=== PATIENT | female | born 1965 | race Two or more races ===

== ENCOUNTER 2020-08-08 12:05 | Inpatient (IN) | payer OTHER ==
[~2020-08-08] VITALS: Ht 154.9 cm; Wt 74.8 kg
[2020-08-08 12:00] VITALS: BP_SYST 115; BP_DIAS 66; BP_DIAS 67
--- NOTE | 2020-08-08 12:30 | NUR ---
RECEIVED PT FROM PARAMEDICS. PHONE REPORT GIVEN FROM HERCULES. UPON ADMISSION PT A/OX 4. AMBULATORY W STEADY GAIT AND STRONG EXTREMITIES. REPORT PAIN WHEN BREATHING IN ANTERIOR MID CHEST AND POSTERIOR CHEST. 2L/MIN NC RUNNING AND SAO2 100%. NO SIGNS OF DISTRESS. TELE MONITOR ON READING SR IN 60S WITH OCCASIONAL PVCS. PULSES STRONG. URINATED W NO ISSUES AND AMBULATES WELL TO BATHROOM. L AC SALINE LOCKED. DRESSING DRY AND INTACT. PT BELONGINGS NOTED, PT EXPRESSED WANTING TO KEEP ALL BELONGINGS AT BEDSIDE. SKIN INTACT. NO CUTS BRUISES OR LESIONS. WILL MONITOR PATIENT AND REPORT TO MD NEEDED.
[2020-08-08] MEDS ORDERED: ONDA-97 PO (13:16)
[2020-08-08] MEDS ORDERED: ZOLPIDEM TARTRATE 5 MG TABLET PO PRN (14:00)
[2020-08-08] MEDS ORDERED: Z GUARD REMEDY 2 OZ OINT TP PRN (14:00)
[2020-08-08] MEDS ORDERED: MAG HYDROX/AL HYDROX/SIMETH 30 ML UDC PO PRN (14:00)
[2020-08-08] MEDS ORDERED: MAGNESIUM HYDROXIDE 30 ML UDC PO PRN (14:00)
[2020-08-08] MEDS ORDERED: HYDROCODONE/APAP 5/325MG TABLET PO PRN (14:00)
[2020-08-08] MEDS ORDERED: ONDANSETRON HCL/PF 4 MG/2 ML VIAL IVP PRN (14:00)
[2020-08-08 15:20] LABS: BASOPHILS % (AUTO) 0.2 % (0.0-2.0); EOSINOPHILS % (AUTO) 0.1 % (0.0-6.0); HEMATOCRIT 36 % (33-45); LYMPHOCYTES # (AUTO) 1.1 /CMM (0.8-4.8); LYMPHOCYTES % (AUTO) 19.8 % (20.0-44.0); MEAN CORPUSCULAR HGB CONC 33 g/dl (31.0-36.0); MEAN CORPUSCULAR VOLUME 88 fL (82-100); MONOCYTES # (AUTO) 0.3 /CMM (0.1-1.30); MONOCYTES % (AUTO) 6.2 % (2.0-12.0); NEUTROPHILS # (AUTO) 4.1 /CMM (1.8-8.9); NEUTROPHILS % (AUTO) 73.7 % (43.0-81.0); PLATELET COUNT (AUTO) 186 /CMM (150-450); RED BLOOD CELL COUNT(AUTO) 4.11 MIL/uL (4.0-5.2); WHITE BLOOD COUNT (AUTO) 5.5 K/uL (4.3-11.0)
[2020-08-08 15:55] LABS: BILIRUBIN,TOTAL 0.5 mg/dL (0.2-1.0); CREATININE 0.9 mg/dL (0.6-1.3); POTASSIUM 4.4 mmol/L (3.5-5.1); TOTAL PROTEIN, SERUM 7.7 g/dL (6.4-8.2)
[2020-08-08 16:00] VITALS: BP 141/70
[2020-08-08 17:00] VITALS: BP 141/70
[2020-08-08] MEDS: ACETAMINOPHEN 325 MG TABLET PO PRN ×2 (17:04→23:37)
--- NOTE | 2020-08-08 18:35 | NUR ---
PT ASLEEP IN BED AND EASILY AROUSABLE. REPORT PAIN WHEN BREATHING IN ANTERIOR MID CHEST AND POSTERIOR CHEST AND MILD HEADACHE. ADMINISTERED ORDERED ACETAMINOPHEN. ALL ORDERS IMPLEMENTED. 2L/MIN NC RUNNING AND SAO2 98%. NO SIGNS OF DISTRESS. TELE MONITOR ON READING SR IN 60S WITH OCCASIONAL PVCS. PULSES STRONG. URINATED W NO ISSUES AND AMBULATES WELL TO BATHROOM. L AC SALINE LOCKED. DRESSING DRY AND INTACT. MONITORED BREATHING, RESPIRATIONS, SAO2 THROUGHOUT SHIFT. MONITORED VS AND PAIN THROUGHOUT SHIFT AND REPORTED NEEDED TO MD. WILL ENDORSE TO PM RN FOR CONTINUATION OF CARE.
--- NOTE | 2020-08-08 19:57 | NUR ---
TELE/RN OPENING NOTE Patient asleep in bed, A/O x4, ambulatory. No JVD. Tongue midline, no tracheal deviation. CRP <3seconds. Pedal and brachial pulses 2+, symmetrical. Tele monitor reading sinus rhythm with PVCs in the 60s. Breathing even, unlabored on 2 LPM NC. Skin warm, pink, dry appropriate for ethnicity, intact. IV site LAC 20g saline locked, patent and intact. No signs of redness or infiltration. Abdomen round, soft, non-tender. BS active. Patient void via BRP without difficulty. Bed in low position, wheels locked, side rails up x2, call light within reach.
[2020-08-08 20:00] VITALS: BP 110/61
[2020-08-08 20:30] VITALS: BP 110/61
--- NOTE | 2020-08-08 23:42 | NUR ---
TELE/RN NOTE Patient c/o pain level 7 on back, aching and throbbing. Administered PRN norco as ordered. VSS Will continue to monitor.
--- NOTE | 2020-08-08 23:43 | NUR ---
TELE/RN NOTE Patient temperature is 100.3. Administered PRN acetaminophen as ordered. Will continue to monitor.
[2020-08-09] VITALS (7 sets, daily range): BP systolic 108–146; BP diastolic 62–99
[2020-08-09] MEDS ORDERED: AZITHROMYCIN 500 MG VIAL ONE (01:31)
[2020-08-09] MEDS: AZITHROMYCIN 500 MG in IV D5W 250 ML IV SCH (01:58)
[2020-08-09] MEDS: PANTOPRAZOLE 40 MG TABLET.DR PO SCH (06:33)
[2020-08-09 06:49] LABS: BASOPHILS % (AUTO) 0.3 % (0.0-2.0); HEMATOCRIT 34 % (33-45); HEMOGLOBIN 11.2 g/dL (11.5-14.8); LYMPHOCYTES # (AUTO) 1.1 /CMM (0.8-4.8); LYMPHOCYTES % (AUTO) 20.6 % (20.0-44.0); MEAN CORPUSCULAR HGB CONC 33 g/dl (31.0-36.0); MEAN CORPUSCULAR VOLUME 88 fL (82-100); MONOCYTES # (AUTO) 0.3 /CMM (0.1-1.30); MONOCYTES % (AUTO) 5.2 % (2.0-12.0); NEUTROPHILS # (AUTO) 4.1 /CMM (1.8-8.9); NEUTROPHILS % (AUTO) 73.9 % (43.0-81.0); PLATELET COUNT (AUTO) 187 /CMM (150-450); RED BLOOD CELL COUNT(AUTO) 3.81 MIL/uL (4.0-5.2); WHITE BLOOD COUNT (AUTO) 5.5 K/uL (4.3-11.0)
[2020-08-09 06:57] LABS: MAGNESIUM 2.4 mg/dL (1.8-2.4); PHOSPHORUS 3.7 mg/dL (2.5-4.9)
--- NOTE | 2020-08-09 07:08 | NUR ---
TELE/RN CLOSING NOTE Patient asleep in bed, A/O x4, ambulatory. Tele monitor reading sinus rhythm with PVCs in the 70s. Breathing even, unlabored on 2 LPM NC. Skin warm, pink, dry appropriate for ethnicity, intact. IV site LAC 20g saline locked, patent and intact. No signs of redness or infiltration. Patient void via BRP 4x, without difficulty. All scheduled medications given and orders carried out. Bed in low position, wheels locked, side rails up x2, call light within reach.
--- NOTE | 2020-08-09 08:00 | NUR ---
RN OPENING NOTE Patient is resting in bed, A/o x4, SOB upon exertion, o2 95% on 3L NC. Tele monitor SR 67. Patient denies any pain at this time. Temperature is 99.6F, cooling measures implemented and temp went down to 98.8F. IV line in the LAC#20g is clean and intact s/l. Patient is ambulatory with BRP and independent with care. Bed is in lowest position, side rails x2 in upright position, call light is within reach, fall safety and aspiration precautions enforced. Isolation for COVID positive. Will continue with plan of care.
[2020-08-09] MEDS: DEXAMETHASONE SOD PHOSPHATE 10 MG/ML VIAL IV SCH (08:50)
[2020-08-09] MEDS ORDERED: CEFTRIAXONE 1GM BAG (ER ONLY) 1 GM/50 ML PIGGYBACK IV SCH (09:00)
[2020-08-09] MEDS: CEFTRIAXONE 1 G in IV D5W 50 ML IV SCH (09:04)
--- NOTE | 2020-08-09 12:41 | NUR ---
RN NOTE Per Dr. Lees to order convalescent plasma for patient. Paperwork has been filled out by Dr. Lees.
[2020-08-09 13:56] LABS: FERRITIN 515 ng/mL (8-388)
[2020-08-09 14:21] LABS: C-REACTIVE PROTEIN 17.4 mg/dL (0.0-0.9)
[2020-08-09] MEDS: ACETAMINOPHEN 325 MG TABLET PO PRN (14:48)
[2020-08-09] MEDS ORDERED: REMDESIVIR (INVESTIGATIONAL) 200 MG in IV NS 0.9% 210 ML IV ONE (16:30)
--- NOTE | 2020-08-09 18:51 | NUR ---
RN CLOSING NOTE Patient is resting in bed, A/o x4, SOB upon exertion, o2 95% on 3L NC. Tele monitor SR 60-70s. Patient denies any pain at this time. Temperature is 99.6F, cooling measures implemented and temp went down to 98.8F. IV line in the LAC#20g is clean and intact s/l. Patient is ambulatory with BRP and independent with care. Consent for convalsecent plasma has been signed by the patient. All patient needs met, all due medications given, patient kept clean and dry throughout shift. Bed is in lowest position, side rails x2 in upright position, call light is within reach, fall safety and aspiration precautions enforced. Isolation for COVID positive. Will endorse to shift production associate.
--- NOTE | 2020-08-09 20:07 | NUR ---
RECEIVED IN BED LYING ON HER RIGHT SIDE ALERT ORIENTATED X4 WHEN NAME SPOKEN TURNED OVER AND ACKNOWLEDGED THE NURSE DENIES SOB OR PAIN 02 ON NC 92% AT 4LITERS
[2020-08-10] VITALS (9 sets, daily range): BP systolic 112–142; BP diastolic 67–78
--- NOTE | 2020-08-10 05:17 | NUR ---
CLOSING NOTES: ALERT AND ORIENTATED X4 ONE COUGHING SPELL THIS NIGHT AMBULATES TO THE BATHROOM STEADY ON HER FEET. SOB WHEN SHE AMBULATES TO THE BATHROOM, INSTRUCTED HER TO KEP THE 02 ON D/T THE TUBING IS LONG AND WILL MAKE IT TO THE BATHROOM. 02 AT 2 LITERS SATS 95%
[2020-08-10 06:18] LABS: BASOPHILS % (AUTO) 0.1 % (0.0-2.0); HEMATOCRIT 32 % (33-45); HEMOGLOBIN 10.9 g/dL (11.5-14.8); LYMPHOCYTES # (AUTO) 1.1 /CMM (0.8-4.8); LYMPHOCYTES % (AUTO) 13.2 % (20.0-44.0); MEAN CORPUSCULAR HGB CONC 34 g/dl (31.0-36.0); MEAN CORPUSCULAR VOLUME 87 fL (82-100); MONOCYTES # (AUTO) 0.5 /CMM (0.1-1.30); MONOCYTES % (AUTO) 5.8 % (2.0-12.0); NEUTROPHILS # (AUTO) 6.6 /CMM (1.8-8.9); NEUTROPHILS % (AUTO) 80.9 % (43.0-81.0); PLATELET COUNT (AUTO) 217 /CMM (150-450); RED BLOOD CELL COUNT(AUTO) 3.72 MIL/uL (4.0-5.2); WHITE BLOOD COUNT (AUTO) 8.1 K/uL (4.3-11.0)
[2020-08-10 06:53] LABS: ALBUMIN 2.7 g/dL (3.4-5.0); BILIRUBIN,DIRECT 0.1 mg/dL (0.0-0.2); BILIRUBIN,TOTAL 0.4 mg/dL (0.2-1.0); CALCIUM, SERUM 9.2 mg/dL (8.5-10.1); CREATININE 0.9 mg/dL (0.6-1.3); MAGNESIUM 2.3 mg/dL (1.8-2.4); PHOSPHORUS 2.9 mg/dL (2.5-4.9); POTASSIUM 3.5 mmol/L (3.5-5.1); TOTAL PROTEIN, SERUM 7.3 g/dL (6.4-8.2)
--- NOTE | 2020-08-10 07:26 | NUR ---
MIDDLE SCHOOL RESOURCE TEACHER NOTES PATIENT RECEIVED IN BED RESTING COMFORTABLY, ALERT AND ORIENTED X 4, INDONESIAN SPEAKING. ON NASAL CANNULA 2LITERS WITH NO SIGNS OF RESPIRATORY DISTRESS, WITH EVEN NON-LABORED BREATHING AT THIS TIME. ON SERVICE CONSULTANT, SINUS RHYTHM 66. SKIN WARM AND DRY TO TOUCH. IV ACCESS INTACT AND PATENT. PATIENT PRESENTS WITH NO PAIN OR DISCOMFORT AT THIS TIME. ISOLATION PRECAUTIONS IMPLEMENTED. SAFETY PRECAUTIONS IMPLEMENTED WITH BED LOCKED, BED IN THE LOWEST POSITION, BILATERAL SIDE RAILS UP, BED ALARM ON, AND CALL LIGHT WITHIN EASY REACH. WILL CONTINUE TO MONITOR PATIENT.
[2020-08-10] MEDS: PANTOPRAZOLE 40 MG TABLET.DR PO SCH (08:35)
[2020-08-10] MEDS: DEXAMETHASONE SOD PHOSPHATE 10 MG/ML VIAL IV SCH (08:35)
[2020-08-10] MEDS: CEFTRIAXONE 1 G in IV D5W 50 ML IV SCH (08:36)
[2020-08-10] MEDS: AZITHROMYCIN 500 MG in IV D5W 250 ML IV SCH (09:30)
[2020-08-10] MEDS: ENOXAPARIN SODIUM 40 MG/0.4 ML DISP.SYRIN SQ SCH (11:03)
--- NOTE | 2020-08-10 12:01 | NUR ---
LICENSED ACUPUNCTURIST NOTES FOLLOWED UP WITH BLOOD BANK ABOUT CONVALESCENT PLASMA AND PLASMA IS NOT AVAILABLE YET.
--- NOTE | 2020-08-10 15:00 | NUR ---
PIPE JOINTS SUPERVISOR NOTES FOLLOWED UP WITH BLOOD BANK ABOUT CONVALESCENT PLASMA AND PLASMA IS NOT AVAILABLE YET, BLOOD BANK WILL CALL AND NOTIFY WHEN IT IS READY.
[2020-08-10] MEDS: REMDESIVIR (INVESTIGATIONAL) 100 MG in IV NS 0.9% 230 ML IV SCH (16:09)
--- NOTE | 2020-08-10 18:12 | NUR ---
KNIFEMAN NOTES PATIENT IN BED RESTING COMFORTABLY, ALERT AND ORIENTED X 4, [place] SPEAKING. ON NASAL CANNULA 3 LITERS WITH NO SIGNS OF RESPIRATORY DISTRESS, WITH EVEN NON-LABORED BREATHING AT THIS TIME. ON INSTRUMENTS SALES REPRESENTATIVE, SINUS RHYTHM 63. STILL AWAITING FOR CONVALESCENT PLASMA. SKIN KEPT CLEAN, WARM AND DRY TO TOUCH. IV ACCESS INTACT AND PATENT. MET ALL OF PATIENTS NEEDS. PATIENT PRESENTS WITH NO PAIN OR DISCOMFORT AT THIS TIME. ISOLATION PRECAUTIONS IMPLEMENTED. SAFETY PRECAUTIONS IMPLEMENTED WITH BED LOCKED, BED IN THE LOWEST POSITION, BILATERAL SIDE RAILS UP, BED ALARM ON, AND CALL LIGHT WITHIN EASY REACH. WILL ENDORSE PLAN OF CARE TO UPCOMING RN.
--- NOTE | 2020-08-10 23:04 | NUR ---
rn notes: follow up with lab regarding plasma convalescent, per lab there still no available unit at si time. will let us know once they receive it.
[2020-08-11] VITALS (9 sets, daily range): BP systolic 113–140; BP diastolic 7–121
--- NOTE | 2020-08-11 05:17 | NUR ---
rn notes/plasma follow up: Contacted lab x [phone], spoked with [facility], per [facility] there is no available plasma at this time, but the [facility], stated they will call in am once it is receive.
[2020-08-11 06:32] LABS: BASOPHILS % (AUTO) 0.3 % (0.0-2.0); HEMATOCRIT 33 % (33-45); HEMOGLOBIN 11.2 g/dL (11.5-14.8); LYMPHOCYTES % (AUTO) 18.8 % (20.0-44.0); MEAN CORPUSCULAR HGB CONC 34 g/dl (31.0-36.0); MEAN CORPUSCULAR VOLUME 89 fL (82-100); MONOCYTES # (AUTO) 0.5 /CMM (0.1-1.30); NEUTROPHILS # (AUTO) 3.8 /CMM (1.8-8.9); NEUTROPHILS % (AUTO) 70.9 % (43.0-81.0); PLATELET COUNT (AUTO) 259 /CMM (150-450); RED BLOOD CELL COUNT(AUTO) 3.76 MIL/uL (4.0-5.2); WHITE BLOOD COUNT (AUTO) 5.3 K/uL (4.3-11.0)
--- NOTE | 2020-08-11 06:43 | NUR ---
End of shift report: Kept on airborne isolation as pt covid positive, ppe utilized, with used of n95 and face shield. Pt on sinus maria guadalupe hr 59. Pt remains a/o x4, on 4l oxygen via nc, respirations even and unlabored, spo2 ranging 93-95%. Remains afebrile. Pt ambulatory, continent, brp. Plan of care: Continue Dexamethasone inj daily, On remdesevir iv q24hr, still waiting for convalescent plasma to become available., blood transfusion consent attached to chart. Safety precautions for fall initiated, call light in reach, will endorse to day rn for narciso.
[2020-08-11 06:55] LABS: ALBUMIN 2.7 g/dL (3.4-5.0); BILIRUBIN,DIRECT 0.1 mg/dL (0.0-0.2); BILIRUBIN,TOTAL 0.3 mg/dL (0.2-1.0); CALCIUM, SERUM 9.4 mg/dL (8.5-10.1); CREATININE 0.9 mg/dL (0.6-1.3); MAGNESIUM 2.4 mg/dL (1.8-2.4); PHOSPHORUS 3.3 mg/dL (2.5-4.9); TOTAL PROTEIN, SERUM 7.4 g/dL (6.4-8.2)
--- NOTE | 2020-08-11 07:15 | NUR ---
MCAT INSTRUCTOR NOTES RECEIVED PATIENT IN BED, ALERT AND ORIENTED X4. HOB ELEVATED. ON O2 AT 4L/MIN VIA NC. RT HAND # 20 SL INTACT AND PATENT. ON TELE MONITORING SR: 60. BED IN LOWEST POSITION, LOCKED. BED ALARM ON. FREQUENT VISUAL CHECK DONE. CALL LIGHT WITHIN REACH. ABLE TO VERBALIZE NEEDS.
[2020-08-11] MEDS: PANTOPRAZOLE 40 MG TABLET.DR PO SCH (08:28)
[2020-08-11] MEDS: DEXAMETHASONE SOD PHOSPHATE 10 MG/ML VIAL IV SCH (08:28)
[2020-08-11] MEDS: CEFTRIAXONE 1 G in IV D5W 50 ML IV SCH (08:35)
[2020-08-11] MEDS: AZITHROMYCIN 500 MG in IV D5W 250 ML IV SCH (08:37)
[2020-08-11] MEDS: ENOXAPARIN SODIUM 40 MG/0.4 ML DISP.SYRIN SQ SCH (08:39)
[2020-08-11] MEDS: REMDESIVIR (INVESTIGATIONAL) 100 MG in IV NS 0.9% 230 ML IV SCH (16:40)
[2020-08-11] MEDS: GUAIFENESIN/D-METHORPHAN HB 5 ML UDC PO PRN (18:01)
--- NOTE | 2020-08-11 19:19 | NUR ---
TRANSITIONAL NURSE NOTES PATIENT RESTING COMFORTABLY IN BED, ASLEEP. ALERT AND ORIENTED X4. HOB ELEVATED. TITRATED PATIENT DURING THE SHIFT, NOW ON 02 AT 2L/MIN VIA NC. NO S/S OF RESPIRATORY DISTRESS DURING THE SHIFT. WITH OCCASIONAL PRODUCTIVE COUGH BUT PATIENT ABLE TO COUGH OUT PHLEGM. RIGHT HAND # 20 SL AND LT AC # 18 SL INTACT AND PATENT. BED IN LOWEST POSITION, LOCKED. S/P CONVALESCENT PLASMA AND DAY 2 OF REMDESIVIR WITHOUT S/S OF COMPLICATIONS OBSERVED DURING THE SHIFT. BED ALARM ON. FREQUENT VISUAL CHECK DONE. IN NO APPARENT DISTRESS. CALL LIGHT WITHIN REACH. ABLE TO VERBALIZE NEEDS.
--- NOTE | 2020-08-11 19:45 | NUR ---
PROCESSING ANALYST NOTE: PATIENT RESTING IN BED, NO ACUTE DISTRESS NOTED. BREATHING EVEN AND UNLABORED, NO SOB NOTED. IV TO RIGHT HAND AND LAC IN PLACE. ISOLATION PRECAUTIONS OBSERVED. BED LOCKED AND IN LOWEST POSITION, CALL LIGHT IN REACH. WILL CONTINUE TO MONITOR.
[2020-08-12] VITALS: BP_SYST 136; BP_SYST 140; BP_DIAS 77; BP_DIAS 78
--- NOTE | 2020-08-12 03:30 | NUR ---
NUCLEAR EQUIPMENT SALES ENGINEER NOTE: PATIENT SLEEPING IN BED, NO ACUTE DISTRESS NOTED. BREATHING EVEN AND UNLABORED, NO SOB NOTED. IV TO RIGHT HAND AND LAC IN PLACE. ISOLATION PRECAUTIONS OBSERVED. BED LOCKED AND IN LOWEST POSITION, CALL LIGHT IN REACH. WILL ENDORSE TO DAY NURSE TO CONTINUE WITH PLAN OF CARE. Addendum: 08/12/20 at 0630 by JONNATHAN SIMMS RN ADJUST TIME TO 0630
[2020-08-12 07:16] LABS: BASOPHILS % (AUTO) 0.1 % (0.0-2.0); EOSINOPHILS % (AUTO) 0.1 % (0.0-6.0); HEMATOCRIT 35 % (33-45); HEMOGLOBIN 11.6 g/dL (11.5-14.8); LYMPHOCYTES # (AUTO) 1.5 /CMM (0.8-4.8); LYMPHOCYTES % (AUTO) 19.9 % (20.0-44.0); MEAN CORPUSCULAR HGB CONC 34 g/dl (31.0-36.0); MEAN CORPUSCULAR VOLUME 88 fL (82-100); MONOCYTES # (AUTO) 0.5 /CMM (0.1-1.30); MONOCYTES % (AUTO) 6.8 % (2.0-12.0); NEUTROPHILS # (AUTO) 5.4 /CMM (1.8-8.9); NEUTROPHILS % (AUTO) 73.1 % (43.0-81.0); PLATELET COUNT (AUTO) 305 /CMM (150-450); RED BLOOD CELL COUNT(AUTO) 3.94 MIL/uL (4.0-5.2); WHITE BLOOD COUNT (AUTO) 7.3 K/uL (4.3-11.0)
[2020-08-12 07:22] LABS: ALBUMIN 2.8 g/dL (3.4-5.0); BILIRUBIN,DIRECT 0.1 mg/dL (0.0-0.2); BILIRUBIN,TOTAL 0.4 mg/dL (0.2-1.0); CALCIUM, SERUM 9.5 mg/dL (8.5-10.1); CREATININE 0.8 mg/dL (0.6-1.3); MAGNESIUM 2.4 mg/dL (1.8-2.4); PHOSPHORUS 2.9 mg/dL (2.5-4.9); POTASSIUM 3.7 mmol/L (3.5-5.1); TOTAL PROTEIN, SERUM 7.4 g/dL (6.4-8.2)
--- NOTE | 2020-08-12 07:30 | NUR ---
POLICE RADIO DISPATCHER NOTES PT IN BED, AWAKE, ALERT AND ORIENTED, DENIES PAIN, BREATHING PATTERN NORMAL, CALL LIGHT WITHIN REACH, ISOLATION PRECAUTIONS OBSERVED, NEEDS ATTENDED, KEPT WARM AND COMFORTABLE IN BED.
[2020-08-12 07:33] LABS: C-REACTIVE PROTEIN 5.1 mg/dL (0.0-0.9)
[2020-08-12 08:00] VITALS: BP 128/71
[2020-08-12] MEDS: DEXAMETHASONE SOD PHOSPHATE 10 MG/ML VIAL IV SCH (08:14)
[2020-08-12] MEDS: PANTOPRAZOLE 40 MG TABLET.DR PO SCH (08:14)
[2020-08-12] MEDS: CEFTRIAXONE 1 G in IV D5W 50 ML IV SCH (08:14)
[2020-08-12] MEDS: AZITHROMYCIN 250 MG TABLET PO SCH (08:14)
[2020-08-12] MEDS: ENOXAPARIN SODIUM 40 MG/0.4 ML DISP.SYRIN SQ SCH (08:27)
[2020-08-12 12:00] VITALS: BP 136/90
--- NOTE | 2020-08-12 12:01 | NUR ---
GAMB CUTTER NOTES PT IN BED, AWAKE, ALERT AND ORIENTED, DENIES PAIN, BREATHING PATTERN NORMAL, ON O2 AT 2LPM VIA N/C, NO COMPLAINT OF SOB, ABLE TO AMBULATE TO THE BATHROOM WITH STEADY GAIT, DUE MEDS GIVEN ORDERED.
[2020-08-12 12:31] LABS: C-REACTIVE PROTEIN 5.3 mg/dL (0.0-0.9)
[2020-08-12 16:00] VITALS: BP 141/74
[2020-08-12] MEDS: REMDESIVIR (INVESTIGATIONAL) 100 MG in IV NS 0.9% 230 ML IV SCH (16:34)
--- NOTE | 2020-08-12 18:04 | NUR ---
OPERATIONS RESEARCH GROUP MANAGER NOTES PT IN BED, RESTING, DENIES PAIN OR ANY DISCOMFORT, BREATHING PATTERN NORMAL, PM MEDS GIVEN ORDERED, TOLERATES CURRENT DIET, KEPT WARM AND COMFORTABLE IN BED.
--- NOTE | 2020-08-12 19:10 | NUR ---
SUPERVISOR MAJOR APPLIANCE ASSEMBLY OPENING NOTES RECEIVED PATIENT IN BED AWAKE ALERT AND ORIENTED X4 , ON 2 L VIA NC TOLERATING WELL, SP02 97%, RESPIRATIONS EVEN AND UNLABORED WITH EQUAL RISE AND FALL OF CHEST, DENIES ANY PAIN OR DISCOMFORT AT THIS TIME, ON TELE MONITORING SB 53. NO DISTRESS PRESENT, IV SITE TO LEFT HAND #20G INTACT AND PATENT, LEFT AC #18 G INTACT AND PATENT, NO REDNESS, NO INFILTRATION PRESENT. SAFETY PRECAUTIONS RENDERED, LOW BED AND LOCKED, ALL NEEDS ATTENDED ORIENTED TO STAFF AND CALL LIGHT AND KEPT WITHIN REACH, WILL CONTINUE TO MONITOR REMAINS COMFORTABLE.
[2020-08-12 20:00] VITALS: BP 137/64
[2020-08-12] MEDS: GUAIFENESIN/D-METHORPHAN HB 5 ML UDC PO PRN (20:06)
--- NOTE | 2020-08-12 20:08 | NUR ---
rn baby notes patient noted with cough . patient requested for cough medication. robitussin prn as ordered offered pt agreed and given. will continue to monitor and attend to needs.
[2020-08-12 20:21] VITALS: BP 137/64
[2020-08-13] VITALS (7 sets, daily range): BP systolic 120–150; BP diastolic 60–83
--- NOTE | 2020-08-13 06:34 | NUR ---
TECHNICAL OPERATIONS SPECIALIST CLOSING NOTES PATIENT IN BED AWAKE ALERT AND ORIENTED X4 , ON 2 L VIA NC TOLERATING WELL, SP02 97%, RESPIRATIONS EVEN AND UNLABORED WITH EQUAL RISE AND FALL OF CHEST, DENIES ANY PAIN OR DISCOMFORT AT THIS TIME, ON TELE MONITORING SB 59. NO DISTRESS PRESENT, IV SITE TO LEFT HAND #20G INTACT AND PATENT, LEFT AC #18 G INTACT AND PATENT, NO REDNESS, NO INFILTRATION PRESENT. SAFETY PRECAUTIONS RENDERED, LOW BED AND LOCKED, ALL NEEDS ATTENDED , CALL LIGHT AND KEPT WITHIN REACH, ROBITUSSIN PEN WAS EFFECTIVE PATIENT SLEPT WELL.WILL CONTINUE TO MONITOR REMAINS COMFORTABLE WILL ENDORSE TO NEXT SHIFT, ALL NEEDS MET. FLUIDS OFFERED.
[2020-08-13 07:09] LABS: BASOPHILS % (AUTO) 0.2 % (0.0-2.0); EOSINOPHILS % (AUTO) 0.2 % (0.0-6.0); HEMATOCRIT 36 % (33-45); HEMOGLOBIN 12.1 g/dL (11.5-14.8); LYMPHOCYTES # (AUTO) 1.9 /CMM (0.8-4.8); LYMPHOCYTES % (AUTO) 23.7 % (20.0-44.0); MEAN CORPUSCULAR HGB CONC 34 g/dl (31.0-36.0); MEAN CORPUSCULAR VOLUME 88 fL (82-100); MONOCYTES # (AUTO) 0.7 /CMM (0.1-1.30); MONOCYTES % (AUTO) 8.4 % (2.0-12.0); NEUTROPHILS # (AUTO) 5.5 /CMM (1.8-8.9); NEUTROPHILS % (AUTO) 67.5 % (43.0-81.0); PLATELET COUNT (AUTO) 342 /CMM (150-450); RED BLOOD CELL COUNT(AUTO) 4.06 MIL/uL (4.0-5.2); WHITE BLOOD COUNT (AUTO) 8.2 K/uL (4.3-11.0)
[2020-08-13 07:37] LABS: ALBUMIN 2.8 g/dL (3.4-5.0); BILIRUBIN,DIRECT 0.1 mg/dL (0.0-0.2); BILIRUBIN,TOTAL 0.4 mg/dL (0.2-1.0); CALCIUM, SERUM 9.4 mg/dL (8.5-10.1); CREATININE 0.9 mg/dL (0.6-1.3); MAGNESIUM 2.2 mg/dL (1.8-2.4); PHOSPHORUS 2.6 mg/dL (2.5-4.9); POTASSIUM 3.8 mmol/L (3.5-5.1); TOTAL PROTEIN, SERUM 7.4 g/dL (6.4-8.2)
--- NOTE | 2020-08-13 07:45 | NUR ---
TELE/RN OPENING NOTES RECEIVED PATIENT AWAKEON BED, PATIENT ALERT AND ORIENTED X 4. PATIENT IN NO APPARENT RESPIRATORY DISTRESS NOTED. NO COMPLAINED OF PAIN NOTED AT THIS TIME. PATIENT IN TELE MONITOR READING SINUS CARMEN 56 BPM. WILL CONTINUE TO MONITOR.
[2020-08-13] MEDS: PANTOPRAZOLE 40 MG TABLET.DR PO SCH (08:28)
[2020-08-13] MEDS: DEXAMETHASONE SOD PHOSPHATE 10 MG/ML VIAL IV SCH (08:28)
[2020-08-13] MEDS: AZITHROMYCIN 250 MG TABLET PO SCH (08:29)
[2020-08-13] MEDS: ENOXAPARIN SODIUM 40 MG/0.4 ML DISP.SYRIN SQ SCH (08:31)
[2020-08-13] MEDS: CEFTRIAXONE 1 G in IV D5W 50 ML IV SCH (08:33)
[2020-08-13 12:13] LABS: C-REACTIVE PROTEIN 3.9 mg/dL (0.0-0.9)
[2020-08-13] MEDS: REMDESIVIR (INVESTIGATIONAL) 100 MG in IV NS 0.9% 230 ML IV SCH (16:56)
--- NOTE | 2020-08-13 18:44 | NUR ---
TELE/RN CLOSING NOTES PATIENT IS ON BED. ALERT AND ORIENTED X4. PATIENT IN NO APPARENT RESPIRATORY DISTRESS NOTED. NO SIGN AND SYMPTOM OF PAIN AT THIS TIME. ON OXYGEN AT 2L/MIN VIA NASAL CANNULA AND SATURATION 97%. TELE MONITOR IN PLACED READING SB-SR (45-72 BPM). IV ACCESS AT RIGHT HAND # 20G AND LEFT AC # 18G PATENT AND INTACT. SEEN AND EXAMINED BY MD WITH ORDERS MADE AND CARRIED OUT. ALL MEDICATION WAS GIVEN. SAFETY PRECAUTION WAS IN PLACED. CHECKED PATIENT EVERY 2 HOURS. BED IN LOWEST POSITION AND LOCKED. SIDERAILS UP X2. CALL LIGHT WITHIN REACH. WILL ENDORSED TO CHEMICAL DEPENDENCY THERAPIST FOR VIVI.
--- NOTE | 2020-08-13 20:38 | NUR ---
RN OPENING NOTES Received patient awake, resting on bed. No complaints made. On tele monitor with Sinus Bradley noted. On RA, saturating well. Pt denies any discomfort at this time. On fall and aspiration precautions. Will continue to monitor accordingly.
[2020-08-14] VITALS: BP 145/71
[2020-08-14 04:00] VITALS: BP 132/91
[2020-08-14 06:12] LABS: BASOPHILS % (AUTO) 0.2 % (0.0-2.0); EOSINOPHILS % (AUTO) 0.5 % (0.0-6.0); HEMATOCRIT 36 % (33-45); HEMOGLOBIN 11.9 g/dL (11.5-14.8); LYMPHOCYTES # (AUTO) 1.7 /CMM (0.8-4.8); MEAN CORPUSCULAR HGB CONC 33 g/dl (31.0-36.0); MEAN CORPUSCULAR VOLUME 88 fL (82-100); MONOCYTES # (AUTO) 0.5 /CMM (0.1-1.30); MONOCYTES % (AUTO) 8.3 % (2.0-12.0); NEUTROPHILS # (AUTO) 4.1 /CMM (1.8-8.9); PLATELET COUNT (AUTO) 370 /CMM (150-450); RED BLOOD CELL COUNT(AUTO) 4.05 MIL/uL (4.0-5.2); WHITE BLOOD COUNT (AUTO) 6.5 K/uL (4.3-11.0)
--- NOTE | 2020-08-14 06:50 | NUR ---
RN CLOSING NOTES Pt on bed, afebrile the whole shift. All nursing needs attended. No new unusualities noted. Kept on bed clean, dry and comfortable. Endorsed.
[2020-08-14 07:02] LABS: ALBUMIN 2.8 g/dL (3.4-5.0); BILIRUBIN,DIRECT 0.1 mg/dL (0.0-0.2); BILIRUBIN,TOTAL 0.5 mg/dL (0.2-1.0); CALCIUM, SERUM 9.5 mg/dL (8.5-10.1); CREATININE 0.9 mg/dL (0.6-1.3); MAGNESIUM 2.4 mg/dL (1.8-2.4); POTASSIUM 4.2 mmol/L (3.5-5.1); TOTAL PROTEIN, SERUM 7.4 g/dL (6.4-8.2)
--- NOTE | 2020-08-14 07:40 | NUR ---
RN NOTE THE PATIENT IS RECEIVED IN BED. PATIENT IS ALERT AND ORIENTED X4. DENIES PAIN. IN ROOM AIR AND DENIES SOB. RESPIRATION REGULAR AND UNLABORED. TELE BOX READING IS SINUS BRADYCARDIA 50. RIGHT HAND G 20 PATENT AND SALINE LOCKED. BED LOW AND LOCKED. SIDE RAILS UP X2. CALL LIGHT WITHIN REACH. WILL CONTINUE TO MONITOR.
[2020-08-14 08:00] VITALS: BP 122/75
[2020-08-14] MEDS: DEXAMETHASONE SOD PHOSPHATE 10 MG/ML VIAL IV SCH (08:51)
[2020-08-14] MEDS: CEFTRIAXONE 1 G in IV D5W 50 ML IV SCH (08:52)
[2020-08-14] MEDS: PANTOPRAZOLE 40 MG TABLET.DR PO SCH (08:52)
[2020-08-14] MEDS: AZITHROMYCIN 250 MG TABLET PO SCH (08:52)
[2020-08-14] MEDS: ENOXAPARIN SODIUM 40 MG/0.4 ML DISP.SYRIN SQ SCH (09:03)
[2020-08-14 12:00] VITALS: BP 125/70
--- NOTE | 2020-08-14 18:43 | NUR ---
RN NOTE PER PATIENT SHE RECEIVED FLU VACCINE 07/15/20.
--- NOTE | 2020-08-14 18:45 | NUR ---
RN CLOSING NOTE THE PATIENT IS ALERT AND ORIENTED X4. DENIES PAIN. IN ROOM AIR AND SATURATION IS AT 97%. DENIES SOB. RESPIRATION REGULAR AND UNLABORED. THE PATIENT IS IN NO APPARENT DISTRESS. TELE BOX READING IS SINUS BRADYCARDIA 59. LEFT HAND G 20 NAD LAC G 18 BOTH PATENT AND SALINE LOCKED. BED LOW AND LOCKED. CALL LIGHT WITHIN REACH. WILL ENDORSE TO HEAVY MEDIA OPERATOR.
--- NOTE | 2020-08-14 18:47 | NUR ---
RN NOTE REPORT GIVEN TO NURSE PAGAN.
--- NOTE | 2020-08-14 19:40 | NUR ---
PIPELINES MANAGER OPENING NOTES RECEIVED PATIENT IN BED, ALERT AND ORIENTED X 4. BARBADIAN SPEAKING AND ABLE TO FOLLOW DIRECTIONS. BREATHING REGULAR AND UNLABORED ON ROOM AIR. LEFT AC G18 AND RIGHT HAND G20 IV LINE INTACT AND PATENT, FLUSHING WELL WITH NO BLEEDING OR S/S OF INFILTRATION NOTED. ON CARDIAC MONITORING WITH SINUS BRADYCARDIA AT 58bpm. NO COMPLAINTS OF PAIN/DISCOMFORT REPORTED AT THIS TIME. BED LOW AND LOCKED ON SEMI FOWLERS POSITION. CALL LIGHT IN REACH. WILL CONTINUE TO MONITOR.
[2020-08-14 20:00] VITALS: BP 131/75
[2020-08-15] VITALS: BP 123/75
--- NOTE | 2020-08-15 01:10 | NUR ---
PILLOWCASE MAKER NOTES DISCHARGED PATIENT ON A STABLE CONDITION, ALERT AND ORIENTED X 4. AFEBRILE WITH NO S/S OF DISTRESS OBSERVED. IV LINES AND ID BAND REMOVED. BELONGINGS CHECKED. DC PACKET GIVEN TO EMT'S. REPORT GIVEN TO EJ IN [facility].
== END 2020-08-15 01:15 | DRG 137 ==
LOC: TELE2 12:05
PROVIDERS: ADMIT Student in an Organized Health Care Education/Training Program
PROC: 30233L1 Transfusion of Nonautologous Fresh Plasma into Peripheral Vein, Percutaneous Approach (ICD-10-PCS; principal; 2020-08-09)
DX: U07.1 COVID-19 (principal); J12.89 Other viral pneumonia; G43.909 Migraine, unspecified, not intractable, without status migrainosus; M06.4 Inflammatory polyarthropathy; E44.0 Moderate protein-calorie malnutrition; J96.01 Acute respiratory failure with hypoxia; D64.9 Anemia, unspecified; H35.9 Unspecified retinal disorder
CPT/HCPCS: 36415; 71045-TC; 80048-TC; 80053-TC; 80061-TC; 80076-TC; 82550-TC; 82728-TC; 83615-TC; 83735-TC; 84100-TC; 84484-TC; 85025-TC; 85378-TC; 85610-TC; 85730-TC; 86140-TC; 86850-TC; 87081-TC; G0378; J0456; J0696; J1100; J1650; J2405; J7030; J7050; J7060; P9017-BL